=== PATIENT | female | born 1930 | race Caucasian/White ===

== ENCOUNTER 2018-04-14 01:14 | Inpatient (IN) | payer MEDICARE ==
[~2018-04-14] VITALS: Ht 152.4 cm; Wt 59.6 kg
[2018-04-14] VITALS (49 sets, daily range): BP systolic 119–177; BP diastolic 59–98; BMI 16.0
--- NOTE | ~2018-04-14 | OP ---
PATIENT NAME: SAM SRIVASTAVA MEDICAL RECORD: [id number] :[birth year] LOCATION:D. D.2129 ADMISSION DATE:04/14/18 SURGEON: VICTORINA ARCHIBALD MD DATE OF OPERATION: 04/25/2018 PREOPERATIVE DIAGNOSIS: GI bleeding and need of central venous line for IV medications including seizure medications. POSTOPERATIVE DIAGNOSIS: GI bleeding and need of central venous line for IV medications including seizure medications. PROCEDURE: Insertion of right neck triple lumen central venous catheter, 16 cm. SURGEON: Victorina Archibald MD BASTER HAND: Stacy Quinones APRN ANESTHESIA: Local. COMPLICATIONS: None. The risks, possible complications, and alternatives were explained. A consent form was signed. OPERATIVE COURSE: The patient was seen at the bedside. I interrogated the right neck with a handheld ultrasound and I identified a compressible right internal jugular vein as well as an enlarged external jugular vein. The right neck and right chest were sterilely prepped and draped. Local anesthetic was used to infiltrate skin and subcutaneous tissues at the base of the right neck. The right internal jugular vein was accessed, but we could not feed the wire. There was significant amount of bruising involving the right neck. I then chose right supraclavicular subclavian approach. The guidewire passed easily. A small skin harley was accomplished. A vessel dilator was used to dilate subcutaneous tract. A 16-cm triple lumen central venous catheter was inserted to the hub. It was sutured in place times 3. All lumens were flushed easily and aspirated dark, nonpulsatile blood. A stat portable chest x-ray is pending. 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
--- NOTE | ~2018-04-14 | CN ---
PATIENT NAME:SAM SRIVASTAVA MEDICAL RECORD: [id number] : [birth year] LOCATION:[id number] ADMIT DATE: 04/14/18 ACCOUNT: [id number] CONSULTING PHYSICIAN: MARYANNE NARAYANAN MD REFERRING PHYSICIAN: JUDE TYLER MD DATE OF CONSULTATION: 04/15/2018 HISTORY OF PRESENT ILLNESS: Pleasant 87-year-old female with known history of coronary artery disease. I actually saw her approximately a year ago with angina. Given her chronic renal insufficiency, advanced age, and frail state, we treated medically. She has done well since then, transferred from [place] with lower GI bleed. She went into atrial fibrillation earlier this morning. Currently, received IV digoxin and actually has had several complexes of normal sinus rhythm. We were asked to see her concerning her cardiovascular status. PAST MEDICAL HISTORY: Includes; 1. History of hypertension. 2. Diabetes mellitus. 3. Coronary artery disease. MEDICATIONS AT HOME: Include nifedipine 60 b.i.d., Lasix 20 every day, carvedilol unknown dose, and warfarin per scale. ALLERGIES: SULFA. SOCIAL HISTORY: Lives in [place]. Nonsmoker, nondrinker. Has trouble with ADLs due to frailty. REVIEW OF SYSTEMS: The patient reports easy bruising but reports no swollen glands. The patient reports no fever, no night sweats, no significant weight gain, no significant weight loss. No significant exercise tolerance. The patient reports no dry eyes, no irritation, no vision change. Patient reports no difficulty hearing and no ear pain. Patient reports no frequent nose bleeds or nose and sinus problems. Patient reports on arm pain on exertion. No shortness of breath while lying down. No history of heart murmur. Patient reports no cough, no wheezing or coughing up blood. Patient reports no abdominal pain, no vomiting. Normal appetite. No diarrhea and not vomiting blood. No nausea and no constipation. Patient reports no incontinence. No difficulty urinating. No hematuria. No increased frequency. Patient reports no muscle aches. No weakness, no arthralgias, no back pain. No swelling of the extremities. Patient reports no abnormal mole, no jaundice, no rashes. Reports no loss of consciousness. No weakness and no numbness. No seizures, dizziness, or headaches. The patient reports no depression, no sleep disturbance, feeling safe in a relationship and no alcohol abuse. Patient reports on fatigue. Reports no runny nose or sinus pressure. No itching, no hives, and no frequent sneezing. PHYSICAL EXAMINATION: GENERAL: Pleasant elderly female, in no acute distress. VITAL SIGNS: Blood pressure 129/65, pulse currently 110 and irregular. HEENT: Normocephalic, atraumatic. NECK: No bruits noted. HEART: Irregular rates, a little bit above 100. A 2/6 systolic ejection murmur. CONSULT REPORT [id number] [facility] LUNGS: Good air excursion. ABDOMEN: Soft, nontender. EXTREMITIES: Pulse 1+. There is no edema. IMPRESSION: Atrial fibrillation, suspect secondary to a recent gastrointestinal bleed, increased catecholamine drive, etc. We will give digoxin for rate control standpoint. At this point in time given recent gastrointestinal bleed, advanced age, etc. we would not restart Coumadin or NOAC. 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
[~2018-04-14 01:14] MED LIST: ALPHAGAN P 0.155 ML EACH EYE; COREG 3.1253.125 MG PO; LANTUS INSULIN10 ML SC; LASIX20 MG PO; NIFEDIPINE ER60 MG PO; XALATAN 0.0052.5 ML EACH EYE
[2018-04-14 02:36] LABS: BASOPHILS 0.2 % (0-2); EOSINOPHILS 2.4 % (0-7); HEMATOCRIT 24.4 % (36.0-48.0); HEMOGLOBIN 7.8 g/dL (12-16); IMMATURE GRANULOCYTES 1.5 % (0-5); LYMPHOCYTES 20.3 % (15-50); MCH 24.8 pg (26.0-34.0); MCV 77.7 fL (80.0-100.0); MEAN PLATELET VOLUME 9.4 fL (7.4-10.4); MONOCYTES 8.9 % (2-11); NEUTROPHILS 66.7 % (40-80); PLATELET COUNT 245 10x3/uL (130-400); RBC 3.14 10x6/uL (4.00-5.40); RDW 20.6 % (11.5-14.5); WBC 10.1 10x3/uL (4.8-10.8)
[2018-04-14 02:48] LABS: ALBUMIN 2.1 g/dL (3.4-5.0); ANION GAP 16.5 mmol/L (8-16); BILIRUBIN - TOTAL 0.39 mg/dL (0.2-1.3); CALCIUM 7.2 mg/dL (8.5-10.1); CARBON DIOXIDE 23.7 mmol/L (21.0-32.0); CREATININE - SERUM 3.3 mg/dL (0.6-1.3); POTASSIUM - SERUM 4.2 mmol/L (3.5-5.1); PROTEIN - SERUM 5.7 g/dL (6.4-8.2)
[2018-04-14 02:50] LABS: APTT 44.2 SECONDS (22.8-39.4); INR 2.17 (0.85-1.17); PROTIME 23.5 SECONDS (11.6-15.0)
[2018-04-14] MEDS ORDERED: GLIMEPIRIDE4 MG PO (02:57)
[2018-04-14] MEDS ORDERED: COUMADIN4 MG (02:58)
[2018-04-14 13:19] LABS: HEMATOCRIT 30.5 % (36.0-48.0); HEMOGLOBIN 10.4 g/dL (12-16)
[2018-04-14 19:24] LABS: APTT 29.7 SECONDS (22.8-39.4); INR 1.45 (0.85-1.17); PROTIME 17.1 SECONDS (11.6-15.0)
[2018-04-14 19:32] LABS: HEMATOCRIT 32.4 % (36.0-48.0)
[2018-04-15] VITALS (22 sets, daily range): BP systolic 127–182; BP diastolic 63–95
[2018-04-15 03:19] LABS: BASOPHILS 0.1 % (0-2); EOSINOPHILS 0.7 % (0-7); HEMATOCRIT 32.5 % (36.0-48.0); IMMATURE GRANULOCYTES 1.9 % (0-5); MCH 27.2 pg (26.0-34.0); MCHC 33.8 g/dL (31.0-37.0); MEAN PLATELET VOLUME 8.8 fL (7.4-10.4); MONOCYTES 8.9 % (2-11); NEUTROPHILS 76.4 % (40-80); RDW 18.3 % (11.5-14.5); WBC 10.2 10x3/uL (4.8-10.8)
[2018-04-15 03:21] LABS: MCV 80.4 fL (80.0-100.0); PLATELET COUNT 165 10x3/uL (130-400); RBC 4.04 10x6/uL (4.00-5.40)
[2018-04-15 03:34] LABS: ALBUMIN 2.3 g/dL (3.4-5.0); ANION GAP 18.3 mmol/L (8-16); BILIRUBIN - TOTAL 0.59 mg/dL (0.2-1.3); CALCIUM 7.2 mg/dL (8.5-10.1); CARBON DIOXIDE 21.3 mmol/L (21.0-32.0); CREATININE - SERUM 3.1 mg/dL (0.6-1.3); POTASSIUM - SERUM 3.6 mmol/L (3.5-5.1); PROTEIN - SERUM 5.8 g/dL (6.4-8.2)
[2018-04-15 11:22] LABS: HEMATOCRIT 30.6 % (36.0-48.0); HEMOGLOBIN 10.4 g/dL (12-16)
[2018-04-15 11:31] LABS: APTT 34.7 SECONDS (22.8-39.4); INR 1.74 (0.85-1.17); PROTIME 19.8 SECONDS (11.6-15.0)
[2018-04-15 18:56] LABS: HEMATOCRIT 27.8 % (36.0-48.0); HEMOGLOBIN 9.4 g/dL (12-16)
[2018-04-16] VITALS (27 sets, daily range): BP systolic 138–191; BP diastolic 67–101
[2018-04-16 03:54] LABS: BASOPHILS 0.1 % (0-2); EOSINOPHILS 0.8 % (0-7); HEMATOCRIT 28.4 % (36.0-48.0); HEMOGLOBIN 9.4 g/dL (12-16); IMMATURE GRANULOCYTES 1.9 % (0-5); MCH 27.2 pg (26.0-34.0); MCHC 33.1 g/dL (31.0-37.0); MCV 82.1 fL (80.0-100.0); MEAN PLATELET VOLUME 8.7 fL (7.4-10.4); MONOCYTES 10.3 % (2-11); NEUTROPHILS 78.9 % (40-80); PLATELET COUNT 176 10x3/uL (130-400); RBC 3.46 10x6/uL (4.00-5.40); RDW 18.7 % (11.5-14.5); WBC 9.6 10x3/uL (4.8-10.8)
[2018-04-16 04:06] LABS: ALBUMIN 2.3 g/dL (3.4-5.0); BILIRUBIN - TOTAL 0.52 mg/dL (0.2-1.3); CALCIUM 7.2 mg/dL (8.5-10.1); CARBON DIOXIDE 22.3 mmol/L (21.0-32.0); POTASSIUM - SERUM 3.3 mmol/L (3.5-5.1); PROTEIN - SERUM 5.8 g/dL (6.4-8.2)
[2018-04-16 07:13] LABS: APPEARANCE CLOUDY (CLEAR); COLOR YELLOW (YELLOW); NITRITE POSITIVE (NEGATIVE); PROTEIN 2+ mg/dL (NEGATIVE); SPECIFIC GRAVITY 1.015 (1.005-1.020)
[2018-04-16 07:14] LABS: BACTERIA MANY /hpf (NONE SEEN); BILIRUBIN NEGATIVE (NEGATIVE); EPITHELIAL CELLS 0-5 /hpf (0-5); GLUCOSE 100 mg/dL (NEGATIVE); KETONE NEGATIVE (NEGATIVE); MUCUS <1+ /lpf (NONE SEEN); UROBILINOGEN NORMAL (NORMAL); WHITE CELLS - URINE >50 /hpf (0-5)
[2018-04-16 15:53] LABS: BASOPHILS 0.1 % (0-2); EOSINOPHILS 0.9 % (0-7); HEMOGLOBIN 9.1 g/dL (12-16); IMMATURE GRANULOCYTES 1.7 % (0-5); LYMPHOCYTES 9.5 % (15-50); MCH 27.1 pg (26.0-34.0); MCHC 32.5 g/dL (31.0-37.0); MCV 83.3 fL (80.0-100.0); MEAN PLATELET VOLUME 9.2 fL (7.4-10.4); MONOCYTES 9.8 % (2-11); PLATELET COUNT 188 10x3/uL (130-400); RBC 3.36 10x6/uL (4.00-5.40); WBC 10.9 10x3/uL (4.8-10.8)
[2018-04-17] VITALS (29 sets, daily range): BP systolic 119–180; BP diastolic 56–258
[2018-04-17 01:12] LABS: HEMATOCRIT 26.9 % (36.0-48.0); HEMOGLOBIN 8.8 g/dL (12-16)
[2018-04-17 06:08] LABS: BASOPHILS 0.2 % (0-2); EOSINOPHILS 1.1 % (0-7); IMMATURE GRANULOCYTES 2.3 % (0-5); LYMPHOCYTES 8.8 % (15-50); MCH 28.5 pg (26.0-34.0); MCHC 33.8 g/dL (31.0-37.0); MCV 84.4 fL (80.0-100.0); MEAN PLATELET VOLUME 8.8 fL (7.4-10.4); MONOCYTES 10.2 % (2-11); NEUTROPHILS 77.4 % (40-80); PLATELET COUNT 168 10x3/uL (130-400); RBC 3.79 10x6/uL (4.00-5.40); WBC 10.5 10x3/uL (4.8-10.8)
[2018-04-17 06:11] LABS: HEMOGLOBIN 10.8 g/dL (12-16)
[2018-04-17 06:30] LABS: ALBUMIN 2.2 g/dL (3.4-5.0); ANION GAP 15.6 mmol/L (8-16); BILIRUBIN - TOTAL 0.7 mg/dL (0.2-1.3); PHOSPHOROUS 3.5 mg/dL (2.5-4.9); POTASSIUM - SERUM 3.6 mmol/L (3.5-5.1); PROTEIN - SERUM 5.6 g/dL (6.4-8.2)
[2018-04-17 07:33] LABS: INR 1.79 (0.85-1.17); PROTIME 20.3 SECONDS (11.6-15.0)
[2018-04-17 08:19] LABS: CEA 9.3 ng/mL (0.0-4.7)
[2018-04-17 10:20] LABS: HELICOBACTER PYLORI IGM AB 1.9 units (0.0-8.9)
[2018-04-17 13:08] LABS: BASOPHILS 0.2 % (0-2); EOSINOPHILS 0.9 % (0-7); HEMOGLOBIN 10.4 g/dL (12-16); IMMATURE GRANULOCYTES 2.7 % (0-5); LYMPHOCYTES 9.2 % (15-50); MCH 28.1 pg (26.0-34.0); MCHC 33.5 g/dL (31.0-37.0); MCV 83.8 fL (80.0-100.0); PLATELET COUNT 190 10x3/uL (130-400); RDW 17.8 % (11.5-14.5); WBC 12.4 10x3/uL (4.8-10.8)
[2018-04-17 16:20] LABS: HEMATOCRIT 30.4 % (36.0-48.0); HEMOGLOBIN 10.1 g/dL (12-16)
[2018-04-18] VITALS (24 sets, daily range): BP systolic 109–153; BP diastolic 53–88
[2018-04-18 05:18] LABS: BASOPHILS 0.1 % (0-2); EOSINOPHILS 1.5 % (0-7); HEMATOCRIT 29.5 % (36.0-48.0); HEMOGLOBIN 9.8 g/dL (12-16); IMMATURE GRANULOCYTES 2.1 % (0-5); LYMPHOCYTES 9.5 % (15-50); MCH 28.2 pg (26.0-34.0); MCHC 33.2 g/dL (31.0-37.0); MCV 84.8 fL (80.0-100.0); MEAN PLATELET VOLUME 9.1 fL (7.4-10.4); MONOCYTES 9.9 % (2-11); NEUTROPHILS 76.9 % (40-80); PLATELET COUNT 182 10x3/uL (130-400); RBC 3.48 10x6/uL (4.00-5.40); RDW 18.1 % (11.5-14.5); WBC 12.3 10x3/uL (4.8-10.8)
[2018-04-18 05:37] LABS: ALBUMIN 1.8 g/dL (3.4-5.0); ANION GAP 14.5 mmol/L (8-16); BILIRUBIN - TOTAL 0.5 mg/dL (0.2-1.3); CARBON DIOXIDE 19.8 mmol/L (21.0-32.0); CREATININE - SERUM 2.7 mg/dL (0.6-1.3); POTASSIUM - SERUM 3.3 mmol/L (3.5-5.1)
[2018-04-18 13:43] LABS: HEMATOCRIT 28.5 % (36.0-48.0); HEMOGLOBIN 9.5 g/dL (12-16)
[2018-04-18 19:40] LABS: HEMATOCRIT 28.8 % (36.0-48.0); HEMOGLOBIN 9.6 g/dL (12-16)
[2018-04-19] VITALS (21 sets, daily range): BP systolic 99–166; BP diastolic 58–107
[2018-04-19 00:33] LABS: HEMATOCRIT 28.2 % (36.0-48.0); HEMOGLOBIN 9.4 g/dL (12-16)
[2018-04-19 04:32] LABS: BASOPHILS 0.2 % (0-2); EOSINOPHILS 1.1 % (0-7); HEMATOCRIT 28.6 % (36.0-48.0); HEMOGLOBIN 9.5 g/dL (12-16); IMMATURE GRANULOCYTES 2.9 % (0-5); LYMPHOCYTES 7.4 % (15-50); MCH 28.1 pg (26.0-34.0); MCHC 33.2 g/dL (31.0-37.0); MCV 84.6 fL (80.0-100.0); MEAN PLATELET VOLUME 9.4 fL (7.4-10.4); MONOCYTES 11.7 % (2-11); NEUTROPHILS 76.7 % (40-80); RBC 3.38 10x6/uL (4.00-5.40); RDW 18.5 % (11.5-14.5); WBC 13.3 10x3/uL (4.8-10.8)
[2018-04-19 04:40] LABS: PLATELET COUNT 220 10x3/uL (130-400)
[2018-04-19 04:54] LABS: ALBUMIN 1.9 g/dL (3.4-5.0); BILIRUBIN - TOTAL 0.5 mg/dL (0.2-1.3); CALCIUM 7.1 mg/dL (8.5-10.1); CARBON DIOXIDE 21.3 mmol/L (21.0-32.0); CREATININE - SERUM 2.6 mg/dL (0.6-1.3); PHOSPHOROUS 3.1 mg/dL (2.5-4.9); PROTEIN - SERUM 4.8 g/dL (6.4-8.2)
[2018-04-19 04:55] LABS: POTASSIUM - SERUM 4.3 mmol/L (3.5-5.1)
[2018-04-19 08:38] LABS: HEMATOCRIT 29.3 % (36.0-48.0); HEMOGLOBIN 9.8 g/dL (12-16)
[2018-04-19 16:35] LABS: HEMATOCRIT 26.9 % (36.0-48.0); HEMOGLOBIN 9.1 g/dL (12-16)
[2018-04-20] VITALS (24 sets, daily range): BP systolic 93–170; BP diastolic 41–107
[2018-04-20 03:54] LABS: BASOPHILS 0.1 % (0-2); EOSINOPHILS 1.9 % (0-7); LYMPHOCYTES 7.4 % (15-50); MCH 29.3 pg (26.0-34.0); MCHC 34.2 g/dL (31.0-37.0); MCV 85.6 fL (80.0-100.0); MEAN PLATELET VOLUME 9.4 fL (7.4-10.4); MONOCYTES 10.2 % (2-11); NEUTROPHILS 78.4 % (40-80); PLATELET COUNT 211 10x3/uL (130-400); RBC 3.96 10x6/uL (4.00-5.40); RDW 17.6 % (11.5-14.5); WBC 13.5 10x3/uL (4.8-10.8)
[2018-04-20 04:03] LABS: ANION GAP 18.7 mmol/L (8-16); BILIRUBIN - TOTAL 0.5 mg/dL (0.2-1.3); CALCIUM 7.7 mg/dL (8.5-10.1); CREATININE - SERUM 2.8 mg/dL (0.6-1.3); PHOSPHOROUS 3.2 mg/dL (2.5-4.9); POTASSIUM - SERUM 3.7 mmol/L (3.5-5.1); PROTEIN - SERUM 5.5 g/dL (6.4-8.2)
[2018-04-20 04:04] LABS: HEMATOCRIT 33.9 % (36.0-48.0); HEMOGLOBIN 11.6 g/dL (12-16)
[2018-04-20 23:26] LABS: HEMATOCRIT 35.1 % (36.0-48.0); HEMOGLOBIN 11.8 g/dL (12-16)
[2018-04-21] VITALS (23 sets, daily range): BP systolic 161–178; BP diastolic 78–100
[2018-04-21 05:43] LABS: BASOPHILS 0.2 % (0-2); EOSINOPHILS 1.6 % (0-7); HEMATOCRIT 34.2 % (36.0-48.0); HEMOGLOBIN 11.5 g/dL (12-16); IMMATURE GRANULOCYTES 1.5 % (0-5); LYMPHOCYTES 7.4 % (15-50); MCH 29.3 pg (26.0-34.0); MCHC 33.6 g/dL (31.0-37.0); MCV 87.2 fL (80.0-100.0); MEAN PLATELET VOLUME 9.4 fL (7.4-10.4); NEUTROPHILS 79.3 % (40-80); PLATELET COUNT 213 10x3/uL (130-400); RBC 3.92 10x6/uL (4.00-5.40); RDW 17.6 % (11.5-14.5); WBC 11.6 10x3/uL (4.8-10.8)
[2018-04-21 05:47] LABS: INR 1.84 (0.85-1.17); PROTIME 20.7 SECONDS (11.6-15.0)
[2018-04-21 05:52] LABS: ANION GAP 17.2 mmol/L (8-16); CALCIUM 7.6 mg/dL (8.5-10.1); CARBON DIOXIDE 19.5 mmol/L (21.0-32.0); CREATININE - SERUM 2.6 mg/dL (0.6-1.3); POTASSIUM - SERUM 3.7 mmol/L (3.5-5.1); PRE-ALBUMIN 12.5 mg/dL (18.0-35.7)
[2018-04-22] VITALS (12 sets, daily range): BP systolic 111–176; BP diastolic 71–98
[2018-04-22 05:06] LABS: BASOPHILS 0.3 % (0-2); EOSINOPHILS 2.8 % (0-7); HEMATOCRIT 35.1 % (36.0-48.0); HEMOGLOBIN 11.8 g/dL (12-16); IMMATURE GRANULOCYTES 1.1 % (0-5); INR 1.52 (0.85-1.17); LYMPHOCYTES 5.9 % (15-50); MCH 29.5 pg (26.0-34.0); MCHC 33.6 g/dL (31.0-37.0); MCV 87.8 fL (80.0-100.0); MEAN PLATELET VOLUME 9.1 fL (7.4-10.4); MONOCYTES 8.9 % (2-11); PLATELET COUNT 225 10x3/uL (130-400); PROTIME 17.8 SECONDS (11.6-15.0); RDW 17.9 % (11.5-14.5); WBC 11.5 10x3/uL (4.8-10.8)
[2018-04-22 05:24] LABS: ALBUMIN 2.3 g/dL (3.4-5.0); BILIRUBIN - TOTAL 0.5 mg/dL (0.2-1.3); CALCIUM 7.9 mg/dL (8.5-10.1); CARBON DIOXIDE 18.2 mmol/L (21.0-32.0); CREATININE - SERUM 2.4 mg/dL (0.6-1.3); MAGNESIUM - SERUM 1.6 mg/dL (1.8-2.4); PHOSPHOROUS 3.4 mg/dL (2.5-4.9); POTASSIUM - SERUM 3.2 mmol/L (3.5-5.1); PROTEIN - SERUM 6.2 g/dL (6.4-8.2)
[2018-04-23 03:00] VITALS: BP 114/95
[2018-04-23 03:42] LABS: BASOPHILS 0.2 % (0-2); EOSINOPHILS 2.1 % (0-7); HEMATOCRIT 35.9 % (36.0-48.0); IMMATURE GRANULOCYTES 1.6 % (0-5); MCH 29.4 pg (26.0-34.0); MCHC 33.4 g/dL (31.0-37.0); MEAN PLATELET VOLUME 9.5 fL (7.4-10.4); MONOCYTES 8.5 % (2-11); NEUTROPHILS 80.6 % (40-80); PLATELET COUNT 249 10x3/uL (130-400); RBC 4.08 10x6/uL (4.00-5.40); RDW 18.2 % (11.5-14.5); WBC 10.5 10x3/uL (4.8-10.8)
[2018-04-23 03:47] LABS: ANION GAP 14.7 mmol/L (8-16); CALCIUM 7.6 mg/dL (8.5-10.1); CARBON DIOXIDE 21.9 mmol/L (21.0-32.0); CREATININE - SERUM 2.6 mg/dL (0.6-1.3); POTASSIUM - SERUM 3.6 mmol/L (3.5-5.1)
[2018-04-23 03:49] LABS: INR 1.89 (0.85-1.17); PROTIME 21.1 SECONDS (11.6-15.0)
[2018-04-23 07:00] VITALS: BP 137/97
[2018-04-23 11:00] VITALS: BP 128/88
[2018-04-23 16:10] VITALS: BP 139/80
[2018-04-23 20:24] VITALS: BP 144/87
[2018-04-24 06:09] LABS: BASOPHILS 0.3 % (0-2); EOSINOPHILS 2.6 % (0-7); HEMATOCRIT 37.2 % (36.0-48.0); HEMOGLOBIN 12.6 g/dL (12-16); IMMATURE GRANULOCYTES 2.5 % (0-5); MCH 29.6 pg (26.0-34.0); MCHC 33.9 g/dL (31.0-37.0); MCV 87.5 fL (80.0-100.0); MEAN PLATELET VOLUME 9.4 fL (7.4-10.4); MONOCYTES 10.8 % (2-11); NEUTROPHILS 76.8 % (40-80); PLATELET COUNT 242 10x3/uL (130-400); RBC 4.25 10x6/uL (4.00-5.40); RDW 18.5 % (11.5-14.5)
[2018-04-24 06:14] VITALS: BP 132/69
[2018-04-24 06:27] LABS: INR 1.89 (0.85-1.17); PROTIME 21.1 SECONDS (11.6-15.0)
[2018-04-24 06:30] LABS: ANION GAP 18.9 mmol/L (8-16); CALCIUM 7.8 mg/dL (8.5-10.1); CARBON DIOXIDE 16.9 mmol/L (21.0-32.0); CREATININE - SERUM 2.4 mg/dL (0.6-1.3); PHOSPHOROUS 1.9 mg/dL (2.5-4.9); POTASSIUM - SERUM 3.8 mmol/L (3.5-5.1)
[2018-04-24 08:35] VITALS: BP 144/70
[2018-04-24 12:02] VITALS: BP 144/70
[2018-04-24 14:43] VITALS: BP 136/66
[2018-04-24 20:00] VITALS: BP 139/77
[2018-04-25] VITALS: BP 136/59
[2018-04-25 05:24] LABS: BASOPHILS 0.3 % (0-2); EOSINOPHILS 0.9 % (0-7); HEMATOCRIT 36.1 % (36.0-48.0); HEMOGLOBIN 12.3 g/dL (12-16); IMMATURE GRANULOCYTES 2.3 % (0-5); LYMPHOCYTES 6.4 % (15-50); MCH 29.6 pg (26.0-34.0); MCHC 34.1 g/dL (31.0-37.0); MCV 86.8 fL (80.0-100.0); MONOCYTES 10.8 % (2-11); NEUTROPHILS 79.3 % (40-80); PLATELET COUNT 245 10x3/uL (130-400); RBC 4.16 10x6/uL (4.00-5.40); RDW 18.5 % (11.5-14.5); WBC 10.5 10x3/uL (4.8-10.8)
[2018-04-25 05:32] LABS: INR 2.11 (0.85-1.17)
[2018-04-25 05:35] LABS: ANION GAP 20.1 mmol/L (8-16); CALCIUM 7.8 mg/dL (8.5-10.1); CREATININE - SERUM 2.6 mg/dL (0.6-1.3); POTASSIUM - SERUM 4.1 mmol/L (3.5-5.1)
[2018-04-25 05:41] LABS: PHOSPHOROUS 2.4 mg/dL (2.5-4.9)
[2018-04-25 08:22] VITALS: BP 146/71
[2018-04-25 12:09] VITALS: BP 143/75
[2018-04-25 16:16] VITALS: BP 147/84
[2018-04-25 18:46] VITALS: Ht 152.4 cm; Wt 59.6 kg
[2018-04-25 22:01] VITALS: BP 153/73
[2018-04-26 01:03] VITALS: BP 148/87
[2018-04-26 05:53] LABS: BASOPHILS 0.2 % (0-2); HEMATOCRIT 33.1 % (36.0-48.0); HEMOGLOBIN 10.9 g/dL (12-16); IMMATURE GRANULOCYTES 2.4 % (0-5); LYMPHOCYTES 8.5 % (15-50); MCH 29.1 pg (26.0-34.0); MCHC 32.9 g/dL (31.0-37.0); MCV 88.5 fL (80.0-100.0); MEAN PLATELET VOLUME 9.3 fL (7.4-10.4); MONOCYTES 13.8 % (2-11); NEUTROPHILS 74.1 % (40-80); PLATELET COUNT 249 10x3/uL (130-400); RBC 3.74 10x6/uL (4.00-5.40); RDW 18.9 % (11.5-14.5); WBC 11.1 10x3/uL (4.8-10.8)
[2018-04-26 06:20] LABS: ANION GAP 17.7 mmol/L (8-16); CALCIUM 7.5 mg/dL (8.5-10.1); CARBON DIOXIDE 19.2 mmol/L (21.0-32.0); CREATININE - SERUM 2.7 mg/dL (0.6-1.3); PHOSPHOROUS 2.7 mg/dL (2.5-4.9); POTASSIUM - SERUM 3.9 mmol/L (3.5-5.1)
[2018-04-26 07:00] VITALS: BP 148/83
[2018-04-26 13:03] VITALS: BP 125/74
[2018-04-26 16:39] VITALS: BP 130/71
[2018-04-26 20:00] VITALS: BP 125/74
[2018-04-27] VITALS: BP 155/71
[2018-04-27 05:45] LABS: BASOPHILS 0.2 % (0-2); HEMATOCRIT 32.9 % (36.0-48.0); HEMOGLOBIN 10.8 g/dL (12-16); IMMATURE GRANULOCYTES 3.8 % (0-5); LYMPHOCYTES 9.3 % (15-50); MCHC 32.8 g/dL (31.0-37.0); MCV 88.2 fL (80.0-100.0); MEAN PLATELET VOLUME 9.7 fL (7.4-10.4); MONOCYTES 13.3 % (2-11); NEUTROPHILS 71.4 % (40-80); PLATELET COUNT 255 10x3/uL (130-400); RBC 3.73 10x6/uL (4.00-5.40); RDW 18.9 % (11.5-14.5); WBC 11.3 10x3/uL (4.8-10.8)
[2018-04-27 06:19] LABS: ANION GAP 15.2 mmol/L (8-16); CALCIUM 7.7 mg/dL (8.5-10.1); CREATININE - SERUM 2.3 mg/dL (0.6-1.3); PHOSPHOROUS 2.2 mg/dL (2.5-4.9); POTASSIUM - SERUM 4.2 mmol/L (3.5-5.1)
[2018-04-27 09:01] VITALS: BP 152/96
[2018-04-27 12:17] VITALS: BP 153/91
[2018-04-27 15:17] VITALS: BP 150/60
[2018-04-27 20:00] VITALS: BP 163/104
[2018-04-28 04:00] VITALS: BP 167/83
[2018-04-28 08:21] VITALS: BP 146/104
[2018-04-28 11:46] VITALS: BP 170/86
[2018-04-28 15:49] VITALS: BP 185/90
== END 2018-04-28 15:30 | disposition home health service (06) | DRG 377 ==
LOC: D.CVICU 01:14 → D.M2 02:15 → D.ICU 02:15 → D.CVICU 02:15 → D.ICU 04-17 11:05 → D.M2 04-23 14:43
PROVIDERS: Emergency Medicine; Internal Medicine Gastroenterology; Internal Medicine Nephrology
PROC: 0DJD8ZZ Inspection of Lower Intestinal Tract, Via Natural or Artificial Opening Endoscopic (ICD-10-PCS; 2018-04-20)
PROC: 0DJ08ZZ Inspection of Upper Intestinal Tract, Via Natural or Artificial Opening Endoscopic (ICD-10-PCS; principal; 2018-04-20 07:30)
DX: K57.33 Diverticulitis of large intestine without perforation or abscess with bleeding (principal); E43 Unspecified severe protein-calorie malnutrition; D62 Acute posthemorrhagic anemia; N18.4 Chronic kidney disease, stage 4 (severe); N17.9 Acute kidney failure, unspecified; N39.0 Urinary tract infection, site not specified; Z68.1 Body mass index [BMI] 19.9 or less, adult; E11.22 Type 2 diabetes mellitus with diabetic chronic kidney disease; I12.9 Hypertensive chronic kidney disease with stage 1 through stage 4 chronic kidney disease, or unspecified chronic kidney disease; I48.91 Unspecified atrial fibrillation; K52.9 Noninfective gastroenteritis and colitis, unspecified; K62.89 Other specified diseases of anus and rectum; Z79.01 Long term (current) use of anticoagulants; E87.6 Hypokalemia; R56.9 Unspecified convulsions